=== PATIENT | male | born 1980 | race Caucasian/White ===

== ENCOUNTER 2021-01-11 18:40 | Emergency (ER) | payer SELFPAY ==
[2021-01-11 20:46] LABS: BASOPHIL 0.4 % (0-2); EOSINOPHIL 1.4 % (0-5); HCT 32.3 % (42.0-52.0); HGB 10.9 g/dl (13.2-18.0); LYMPHOCYTE 11.7 % (15-48); MCH 29.4 pg (25.0-31.0); MCHC 33.7 g/dL (32.0-36.0); MCV 87.1 fL (78.0-100.0); MONOCYTE 7.3 % (0-12); MPV 8.7 fL (6.0-9.5); NEUTROPHIL 78.8 % (41-80); NRBC 0; PLT 279 K/uL (150-400); RBC 3.71 M/uL (4.70-6.00); RDW 13.4 % (11.5-14.0); WBC 7.3 K/uL (4.0-10.5)
[2021-01-11 21:09] LABS: ALBUMIN 2.8 g/dL (3.4-5.0); ALKALINE PHOSHATASE 91 U/L (46-116); ALT 16 U/L (16-63); AST 16 U/L (15-37); BILIRUBIN - TOTAL 0.5 mg/dL (0.2-1.0); BUN 10 mg/dL (7-18); BUN/CREAT RATIO (CALC) 10.4 RATIO; CHLORIDE 102 mmol/L (98-107); CO2 (BICARBONATE) 27 mmol/L (21-32); CREATININE 0.96 mg/dL (0.67-1.17); GLOBULIN (CALCULATION) 4.2 g/dL; GLUCOSE 99 mg/dL (74-106); POTASSIUM 3.7 mmol/L (3.5-5.1)
[2021-01-11 21:11] LABS: C-REACTIVE PROTEIN > 18.00 mg/dL (<=0.90)
== END 2021-01-11 23:20 | disposition left against medical advice (07) ==
LOC: FER 18:40
PROVIDERS: Emergency Medicine
DX: L03.113 Cellulitis of right upper limb (principal); F17.200 Nicotine dependence, unspecified, uncomplicated
CPT/HCPCS: 36415; 73200; 80053; 85025; 86140; 87040; J3370; J7050